=== PATIENT | female | born 1940 | race Caucasian/White ===

== ENCOUNTER → 2017-07-03 | Outpatient (CLI) | payer OTHER ==
[~2017-07-03] MED LIST: ALDACTONE25 MG PO; B-100 COMPLEX1 EAC1 PO; CENTRUM SILVER1 EAC4 PO; CO Q-10100 MG PO; ESTRADIOL 1 MG T1 M1 PO; FISH OIL 1,001000 M2 PO; LEXAPRO20 MG PO; LORTAB 7.5-3251 EACH PO; MAGOX 400400 MG PO; NAPROSYN500 MG PO; NEURONTIN600 MG PO; OSTEO BI-FLEX1 EAC1 PO; PRINIVIL20 MG PO; PROBIOTIC1 EAC1 PO; RETAINE HPMC 0.10 ML OP; SIMVASTATIN40 MG PO; TYLENOL325 MG PO; VITAMIN B-121000 MCG PO; VITAMIN D-32000 UNIT PO; VITAMINC500 PO; XARELTO10 MG PO
== END ==
LOC: MRI 06-25 09:01
DX: M41.86 Other forms of scoliosis, lumbar region (principal); M47.896 Other spondylosis, lumbar region

== ENCOUNTER 2018-01-08 05:24 | Inpatient (IN) | payer OTHER ==
[2018-01-02 10:59] LABS: HEMOGLOBIN 13.9 gm/dL (12.0-15.0); MCH 30.7 pg (26.0-34.0); MCHC 33.1 g/dL (28.0-37.0); MCV 92.8 fL (80.0-100.0); RBC 4.53 mil/uL (4.20-5.00); RDW 13.9 % (10.5-14.5); WBC 4.9 thou/uL (4.0-11.0)
[2018-01-02 11:00] LABS: URINE BILIRUBIN NEGATIVE (Negative); URINE BLOOD NEGATIVE (Negative); URINE CLARITY CLEAR; URINE COLOR YELLOW; URINE GLUCOSE-RANDOM* NEGATIVE (Negative); URINE KETONES NEGATIVE (Negative); URINE LEUKOCYTES-REFLEX NEGATIVE (Negative); URINE NITRITE-REFLEX NEGATIVE (Negative); URINE PROTEIN (DIPSTICK) NEGATIVE (Negative); URINE UROBILINOGEN 0.2 E.U./dl (0.2-1.0)
[2018-01-02 11:09] LABS: CALCIUM 9.1 mg/dL (8.5-10.1); CREATININE 0.7 mg/dL (0.6-1.0); POTASSIUM 4.6 mmol/L (3.5-5.1)
[2018-01-02 11:11] LABS: PROTIME 10.5 Seconds (9.3-11.4)
[~2018-01-08] VITALS: Ht 172.7 cm; Wt 77.1 kg
--- NOTE | ~2018-01-08 | O ---
[facility] [place] [address] OPERATIVE REPORT Name: LEROY YARBROUGH Room #: 408-P [facility] IN M.R.#: [id number] Admission: 01/08/18 Attend Phys: Kiel Ghosh MD Discharge: Date of : 40 Report #: [id number] THIS REPORT FOR: //name// CC: Kiel Lackey DATE OF SERVICE: 01/08/2018 PREOPERATIVE DIAGNOSES: Severe complex multilevel degenerative lumbar spondylosis with multilevel degenerative facet change and disk bulging causing multilevel spinal stenosis, also herniated lumbar disk, L4-L5, left. POSTOPERATIVE DIAGNOSES: Severe complex multilevel degenerative lumbar spondylosis with multilevel degenerative facet change and disk bulging causing multilevel spinal stenosis, also herniated lumbar disk, L4-L5, left. PROCEDURE: Multilevel decompressive laminectomy for spinal stenosis including L1, L2, L3, L4, and L5 levels and decompressive diskectomy, L4-L5, left. SURGEON: Kiel Ghosh MD INDICATIONS: This still active, fit and well-appearing 77-year-old female complains of severe progressive bilateral lower extremity numbness, pain and weakness. Symptoms are gradually more severe and are aggravated by activity. She now has difficulty with any prolonged standing or walking and also pain and numbness even at rest. Her clinical exam is consistent with some generalized lower extremity radiculopathy. Imaging studies of the lumbar spine reveal markedly severe degenerative change with significant disk space collapse and disk bulging at each level as well as rather marked facet hypertrophy at each level causing severe spinal stenosis extending throughout the lumbar spine. In addition, there is a moderately severe disk bulge at L4-L5 toward the left side, which further causes canal compromise and left nerve root impingement at that level. We discussed treatment options and attempted to avoid surgery if possible given her age; however, her symptoms are more severe and progressive and she simply unable to remain independent and functional given these problems. Given this, she and her family have elected to go ahead with a multilevel decompression for spinal stenosis at this time. DESCRIPTION OF PROCEDURE: The patient was taken to the operating room where she was placed under general anesthesia. Prophylactic intravenous antibiotics were administered. She was turned to the prone position. The lower back was meticulously prepped and draped. A longitudinal skin incision was made extending from L1 down to the sacrum. This was carried through subcutaneous tissues and fascia, retracting the paraspinal muscles out laterally both toward the right and the left. Adequate exposure was established. The laminectomy was started in the lower lumbar region. This was accomplished with moderate [facility] [address] [place] [address] OPERATIVE REPORT Name: LEROY YARBROUGH Room #: 408-P [facility] IN ..#: [id number] Admission: 01/08/18 Attend Phys: Kiel Ghosh MD Discharge: Date of : 40 Report #: [id number] difficulty due to the marked degenerative change, but also due to the fact that she has surprisingly hard bone, her family notes she has been noted to have rather hyperdense bone and was actually undergoing a previous general workup for possible pathologic condition while I do not think this is truly a pathologic process. She does have very hard bone, which made dissection and bony resection difficult and time consuming. Once the canal was entered, it was found to be very tight at multiple levels, which presented further difficulties as there was certainly risk for injury to the dura or nerve root with dissection. Carefully, the laminectomy was completed extending from about L5 level up to L1 level. C-arm was used to visualize the levels and I noted that I need to proceed slightly more proximally and more distally to complete the dissection. The lamina of L1 was resected and most of the lamina of L5 was resected at this point at both the upper and lower aspect of the dissection. The canal seemed to open up nicely without any further stenosis. This corresponded to the findings noted on preoperative MRI study. There was moderate facet hypertrophy at each level causing some lateral recess stenosis. This was improved with careful lateral dissection extending out along the medial border of the facet joint at each level and resecting as much hypertrophied ligamentum as possible to more fully decompress the canal. Once this had been completed, there seemed to be a very satisfactory decompression extending all the way from L1 down to the lower aspect of L5. This was confirmed with further C-arm views. At this point, the L4-L5 disk on the left was visualized. This disk was clearly prominent and bulging, but there was no extruded disk fragment, the disk space was entered and this was confirmed on C-arm, a moderate amount of loose degenerative disk debris was removed from within the disk space. This seemed to improve the disk bulging. There was also some disk fragments, which had extruded beneath the posterior longitudinal ligament along the posterior aspect of L5. Once these were removed, the canal seemed to be nicely decompressed, the nerve root seemed to be freed up and the neural foramina was opened. The other areas were once again inspected and no other areas of significant stenosis or impingement were identified. At this point, the entire wound was copiously irrigated. Satisfactory hemostasis was established with sponges, thrombin and gentle compression, the wound was thoroughly irrigated and dried. I felt there was still a bit of oozing from the multiple open bony surfaces and therefore felt a Hemovac drain was probably most appropriate. One drain was left deep in the wound beneath the fascia and then the fascia was closed with multiple #1 Vicryl sutures and also 0 Monocryl. A second drain was left above the fascia exiting through a separate stab incision. The more superficial subcutaneous tissues were closed with 0 Monocryl. The skin was closed with skin michelle. Total blood loss during the [facility] [address] [place] [address] OPERATIVE REPORT Name: LEROY YARBROUGH [place] Room #: 408-P [facility] IN .R.#: [id number] Admission: 01/08/18 Attend Phys: Kiel Ghosh MD Discharge: Date of : 40 Report #: [id number] procedure was about 325 mL. She seemed to be stable throughout the procedure. She was awakened and returned to recovery room in good condition. <ELECTRONICALLY SIGNED> By: Kiel Ghosh MD 01/08/18 1830 1221 1322 Kiel Ghosh MD /nt
--- NOTE | ~2018-01-08 | S ---
[facility] [place] [address] SURGICAL PATH RPT PROCEDURE Name: MARY GALAVIZ Room #: 408-P ADM IN M.R.#: [id number] Admission: 01/08/18 Date of : 40 Discharge: Report #: [id number] Path Case #: [id number] PATHOLOGY REPORT COLLECTION DATE: 01/08/2018 RECEIVED DATE: 01/08/2018 SUBMITTING PHYS: Dr. Kiel Ghosh OTHER PHYS: Dr. Aye Lackey SPECIMEN(S) RECEIVED: A.L4-L5 disc * * * * * * * * * * * * FINAL DIAGNOSIS: "L4-L5 disc," discectomy: - Intervertebral disc material with reactive and degenerative changes. (CLW:mgr; 01/09/2018) PATHOLOGIST: Zeinab Umanzor M.D. REPORT ELECTRONICALLY SIGNED BY: Zeinab Umanzor M.D. DATE/TIME: 01/09/2018 17:26 * * * * * * * * * * * * GROSS PATHOLOGY: Received in formalin labeled "Mary Galaviz, L4-L5 disc," are several pieces of glistening, fibrous tissue measuring 2.7 x 2.2 x 0.3 cm in aggregate dimensions, containing small fragments of possible bone. The tissue is filtered and submitted entirely in cassette A1. (TSD; 01/08/2018) CLINICAL HISTORY: Lumbar multilevel spinal stenosis INITIAL CPT CODE(S): A; 50804 Professional services performed by [facility] at [facility] [place] [address] Technical services performed by [facility] at [address] [place] [address], [address], [place] [address]. [facility] [address] [address] SURGICAL PATH RPT PROCEDURE Name: ZENONMARY Room #: 408-P ADM IN M.R.#: [id number] Admission: 01/08/18 Date of : 40 Discharge: Report #: [id number] Path Case #: [id number] [address] PHONE: [phone] DIRECTOR: Hugo Mckeon M.D. * * * END OF REPORT * * *
--- NOTE | ~2018-01-08 | D ---
[facility] [place] [address] DISCHARGE SUMMARY Name: LEROY YARBROUGH Room #: 220-P [facility] IN ..#: [id number] Admission: 01/08/18 Attend Phys: Kiel Ghosh MD Discharge: Date of : 40 Report #: [id number] THIS REPORT FOR: //name// CC: Kiel Lackey PLANNED DATE OF DISCHARGE: 01/11/2018 FINAL DIAGNOSES: Severe multilevel degenerative lumbar spondylosis with spinal stenosis and multilevel decompression. HISTORY: This 77-year-old female has a history of progressive degenerative arthritis in multiple areas and underwent previous total joint arthroplasty. She also has a long history of severe and progressive degenerative arthritis in the low back. This has advanced dramatically with marked spinal stenosis at multiple levels as well as a lumbar disk herniation at L4-L5 toward the left side. She has had recently problems with poor sensation and strength in both lower extremities and difficulty with gait and balance. She seems to be a progressive fall risk and her lower extremity radiculopathy is becoming more severe limiting her ability to remain active and independent. Given this, we have elected to go ahead with a multilevel surgical decompression. HOSPITAL COURSE: The patient was admitted and taken to the operating room on 01/08/2018. She underwent a multilevel lumbar decompression extending from L1 through L5 levels as well as a lumbar disk decompression at L4-L5 toward the left side. She tolerated this reasonably well, but postoperatively did have quite a bit of discomfort as well as some weakness. There was mild ongoing oozing and Hemovac drains were left in place for 48 hours. This gradually diminished. She was maintained on IV antibiotics during this timeframe. She was started on IV analgesics and then gradually advanced back to oral analgesics and her other regular medication. She was able to resume a regular diet. She was started with physical therapy and was able to make some slow progress with transfers and some ambulation using a walker; however, she is still rather weak and has poor balance and requires significant assistance for safety. She is clearly an ongoing fall risk. We discussed this issue noting she does not have around the clock help at home where she lives independently. Consequently, I do not think she is ready to resume that level of independence and I feel a period of assistance in an acute rehab facility is more appropriate. She has had previous experience with [facility] and wants to go back to that facility for 3-7 days until she can demonstrate satisfactory safety to return to her own home. Pending bed availability, she may be ready for discharge and transfer to that facility on either 01/11/2018 or 01/12/2018. DISCHARGE MEDICATIONS: Include gabapentin 600 mg b.i.d., lisinopril 20 mg 2 tablets at bedtime, Lexapro 40 mg at bedtime, Tylenol 325 mg q.4h. p.r.n. for mild pain, tramadol 50 mg q.4h. for moderate pain hydrocodone 5 mg q.4h. for more severe pain, simvastatin 40 mg daily, CoQ10, multivitamin 100 mg daily, [address] [address] DISCHARGE SUMMARY Name: LEROY YARBROUGH Room #: 220-P [facility] IN ..#: [id number] Admission: 01/08/18 Attend Phys: Kiel Ghosh MD Discharge: Date of : 40 Report #: [id number] ascorbic acid 1000 mg daily, Centrum multivitamin once daily, vitamin B12 1000 mcg daily, estradiol 1 mg daily, methocarbamol 500 mg p.r.n. muscle spasm, Celebrex 200 mg daily. She will continue a regular diet. I have asked that nursing care at the facility continue with daily wound care to inspect the back incision and change dressing as needed. She can get the area wet with a gentle bathing and a shower, but I would avoid soaking in a tub or whirlpool. She will need assistance for both Physical Therapy and Occupational Therapy for activities of daily living and transfers and ambulation using a walker for balance and weightbearing as tolerated. I have asked the facility and the patient's family to call me should there be any problems or questions. I would anticipate 3-5 days and then possibly home with family assistance and some visiting nursing or visiting therapy if necessary at that point. <ELECTRONICALLY SIGNED> By: Kiel Ghosh MD 01/11/18 0944 1022 1056 Kiel Ghosh MD /nt
--- NOTE | ~2018-01-08 | EKG ---
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
[~2018-01-08 05:24] MED LIST changes: +CELEBREX 200 M200 M1 PO; +LISINOPRIL40 MG PO; +METHOCARBAMOL500 M2 PO; -RETAINE HPMC 0.10 ML OP; +RETAINE HPMC 0.10 ML OPHTHALMIC; +TRAMADOL 50 MG50 MG PO; +VITAMIN E400 UNIT PO
[2018-01-08 07:00] VITALS: BP 166/87
[2018-01-08 15:23] VITALS: BP 141/74
[2018-01-08 16:00] VITALS: BP 148/104
[2018-01-08 16:30] VITALS: BP 131/73
[2018-01-08 19:52] VITALS: BP 146/76
[2018-01-09 00:05] VITALS: BP 154/80
[2018-01-09 04:07] VITALS: BP 157/87
[2018-01-09 07:00] VITALS: BP 128/62
[2018-01-09 15:15] VITALS: BP 152/88
[2018-01-09 17:59] VITALS: BP 128/62
[2018-01-09 19:33] VITALS: BP 146/73
[2018-01-10 03:35] VITALS: BP 126/69
[2018-01-10 08:02] VITALS: BP 124/65
[2018-01-10 16:09] VITALS: BP 128/61
[2018-01-10 20:37] VITALS: BP 143/73
[2018-01-11 08:52] VITALS: BP 135/69
[2018-01-11 20:00] VITALS: BP 117/60
[2018-01-12 08:10] VITALS: BP 162/82
== END 2018-01-12 13:37 | DRG 520 ==
LOC: 4N 05:24 → TBA 05:24 → PRE 05:32 → 4N 14:10 → PRE 14:17 → SICU 01-10 20:29
PROVIDERS: Orthopaedic Surgery
PROC: 01NB0ZZ Release Lumbar Nerve, Open Approach (ICD-10-PCS; principal; 2018-01-08)
PROC: 0SB20ZZ Excision of Lumbar Vertebral Disc, Open Approach (ICD-10-PCS; principal; 2018-01-08)
DX: M51.16 Intervertebral disc disorders with radiculopathy, lumbar region (principal); M47.26 Other spondylosis with radiculopathy, lumbar region; M48.061 Spinal stenosis, lumbar region without neurogenic claudication; I10 Essential (primary) hypertension; E78.5 Hyperlipidemia, unspecified; Z96.642 Presence of left artificial hip joint; G47.30 Sleep apnea, unspecified; Z96.652 Presence of left artificial knee joint; F32.9 Major depressive disorder, single episode, unspecified; Z90.710 Acquired absence of both cervix and uterus; Z98.42 Cataract extraction status, left eye; Z98.41 Cataract extraction status, right eye; Z79.899 Other long term (current) drug therapy
CPT/HCPCS: 10790; 15000; 50010; 50101; 50704; 50850; 51412; 56525; 62110; 62900; 70005

== ENCOUNTER 2020-05-27 13:46 | Inpatient (IN) | payer OTHER ==
[~2020-05-27] VITALS: Ht 170.2 cm; Wt 86.2 kg
[2020-05-27 13:50] VITALS: BP 163/68
[2020-05-27 14:08] LABS: HEMATOCRIT 43.2 % (37.0-47.0); HEMOGLOBIN 14.6 gm/dL (12.0-15.0); MCH 31.7 pg (26.0-34.0); MCHC 33.9 g/dL (28.0-37.0); MCV 93.6 fL (80.0-100.0); PLATELET COUNT 228 thou/uL (150-400); RBC 4.61 mil/uL (4.20-5.00); RDW 15.1 % (10.5-14.5); WBC 4.4 thou/uL (4.0-11.0)
[2020-05-27 14:15] LABS: ANION GAP 8 mmol/L (7-16); BUN 18 mg/dL (7-18); CALCIUM 8.9 mg/dL (8.5-10.1); CHLORIDE 106 mmol/L (98-107); CO2 27 mmol/L (21-32); CREATININE 0.9 mg/dL (0.6-1.0); GLUCOSE 80 mg/dL (74-106); POTASSIUM 4.5 mmol/L (3.5-5.1); SODIUM 141 mmol/L (136-145)
[2020-05-27 14:24] LABS: MAGNESIUM 1.9 mg/dL (1.8-2.4); TROPONIN-I <0.06 ng/mL (<0.06)
[2020-05-27 14:42] LABS: URINE BILIRUBIN NEGATIVE (Negative); URINE BLOOD NEGATIVE (Negative); URINE CLARITY CLEAR; URINE COLOR YELLOW; URINE GLUCOSE-RANDOM* NEGATIVE (Negative); URINE KETONES NEGATIVE (Negative); URINE LEUKOCYTES-REFLEX NEGATIVE (Negative); URINE NITRITE-REFLEX NEGATIVE (Negative); URINE PROTEIN (DIPSTICK) NEGATIVE (Negative); URINE UROBILINOGEN 0.2 E.U./dl (0.2-1.0)
[2020-05-27 15:08] LABS: ABSOLUTE NEUTROPHILS 1.9 thou/uL (1.4-8.2)
[2020-05-27 15:09] LABS: ANISOCYTOSIS 1+
[2020-05-27 15:39] LABS: APTT 22.8 Seconds (24.5-32.8); PROTIME 10.4 Seconds (9.3-11.4)
[2020-05-27 17:29] VITALS: BP 162/76
[2020-05-27 18:25] VITALS: BP 161/76
[2020-05-27 19:00] VITALS: BP 130/54
--- NOTE | 2020-05-27 19:17 | NUR ---
PT ADMITED FROM ER. ADMISSION HX AND ASSESSMENT COMPLETED. VSS. DENIED HAVING PAIN OR DISCOMFORT. SR ON TELE. PT ORIENTED TO THE ROOM AND THE SURROUNDINGS. SON UPDATED ON PT'S PLAN OF CARE. NEW ORDERS NOTED. WILL CONTINUE TO MONITOR.
--- NOTE | 2020-05-27 23:49 | NUR ---
ASSESSMENTS CHARTED. MEDS CHARTED GIVEN. PATIENT RESTING IN BED AT START OF SHIFT. ALERT AND ORIENTED. CLEAR ON ROOM AIR, PATIENT HAD NO PROBLEM EATING AND DRINKING. UP WITH STANDBY ASSIST AND WALKER TO REST ROOM. DENIED PAIN. FALL PRECAUTIONS IN PLACE DURING SHIFT.
[2020-05-28] VITALS: BP 124/91
[2020-05-28 04:00] VITALS: BP 151/71
[2020-05-28 06:15] LABS: ALBUMIN 3.5 g/dL (3.4-5.0); ANION GAP 11 mmol/L (7-16); BUN 21 mg/dL (7-18); CALCIUM 8.8 mg/dL (8.5-10.1); CHLORIDE 103 mmol/L (98-107); CHOLESTEROL 237 mg/dL (<200); CO2 26 mmol/L (21-32); GLUCOSE 89 mg/dL (74-106); HDL CHOLESTEROL 63 mg/dL (>40); LDL CHOLESTEROL 152 mg/dL (<100); POTASSIUM 4.3 mmol/L (3.5-5.1); SGOT 31 U/L (15-37); SGPT 41 U/L (30-65); SODIUM 140 mmol/L (136-145); TC:HDL 3.8 Ratio (Not establshd); TOTAL BILIRUBIN 0.4 mg/dL (0.2-1.0); TRIGLYCERIDE 113 mg/dL (<150); VLDL 23 mg/dL (<40)
[2020-05-28 06:38] LABS: SERUM ASSESSMENT Clear
[2020-05-28 09:33] VITALS: BP 126/66
[2020-05-28 12:32] VITALS: BP 147/73
[2020-05-28 15:09] VITALS: BP 133/69
--- NOTE | 2020-05-28 17:18 | NUR ---
ASSESSMENT CHARTED. PT ALERT AND ORIENTED. VSS. DENIED HAVING PAIN OR DISCOMFORT. SEEN BY NEUROLOGIST. NEW ORDERS NOTED. FALL PRECAUTION ENFORCED. WILL CONTINUE TO MONITOR.
[2020-05-28 19:32] VITALS: BP 148/83
[2020-05-29] VITALS (7 sets, daily range): BP systolic 129–150; BP diastolic 57–81
--- NOTE | 2020-05-29 08:40 | EKG ---
[facility] [place] [address] ELECTROCARDIOGRAM REPORT Name: LEROY YARBROUGH Room #: 202- ADM IN M.R.#: [id number] Admission: 05/27/20 Attend Phys: Alberot Olmos MD Discharge: Date of : 40 Report #: [id number] THIS REPORT FOR: cc: Aye Lackey MD, Kelly M. MD Lundgren, Craig H. 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 : 1940 Requested By: George Zapata Order Number: [id number] MD: Raghav Spence Measurements Intervals [place] Rate: 73 P: 266 DE: 154 QRS: -29 QRSD: 100 T: 63 QT: 412 QTc: 454 Interpretive Statements Sinus rhythm Borderline left axis deviation Poor R wave progression Compared to ECG 01/02/2018 10:54:46 No significant change was found Electronically Signed On 05-29-2020 8:39:48 CDT by Raghav Spence [email or web address] <ELECTRONICALLY SIGNED> By: Raghav Spence MD, [facility] 05/29/20 0839 1359 1359 Raghav Spence MD, [facility] /EPI
--- NOTE | 2020-05-29 09:30 | 2DMMODE ---
[facility] [place] [address] 2 D/M-MODE ECHOCARDIOGRAM Name: LEROY YARBROUGH Room #: 202-P ADM IN M.R.#: [id number] Admission: 05/27/20 Attend Phys: Alberto Olmos MD Discharge: Date of : 40 Report #: [id number] THIS REPORT FOR: cc: Aye Lackey MD, Kelly M. MD Lammoglia, Francisco J. MD ~ APPROVED REPORT Study performed: 05/29/2020 08:45:18 EXAM: Comprehensive 2D, Doppler, and color-flow Echocardiogram Patient Location: Bedside Room #: 202 Status: routine BSA: 1.98 HR: 65 bpm BP: 150/63 mmHg Rhythm: NSR/PCVs Indications CVA Hx: HTN, HLD 2D Dimensions RVDd: 38.94 mm IVSd: 10.51 (7-11mm) LVOT Diam: 20.91 (18-24mm) LVDd: 45.16 mm PWd: 10.13 (7-11mm) LVDs: 27.78 (25-40mm) Aortic Root: 35.56 mm Volumes Left Atrial Volume (Systole) Single Plane 4CH: 39.34 mL Single Plane 2CH: 59.13 mL LA ESV Index: 26.00 mL/m2 Aortic Valve AoV Peak Esvin.: 1.33 m/s AO Peak Gr.: 7.08 mmHg LVOT Max P.40 mmHg LVOT Max V: 1.26 m/s ABHINAV Vmax: 3.26 cm2 Mitral Valve E/A Ratio: 0.5 [facility] [address] [place] [address] 2 D/M-MODE ECHOCARDIOGRAM Name: LEROY YARBROUGH [place] Room #: 202-P [facility] IN Sera.#: [id number] Admission: 05/27/20 Attend Phys: Alberto Olmos MD Discharge: Date of : 40 Report #: [id number] MV Decel. Time: 250.35 ms MV E Max Esvin.: 0.75 m/s MV A Esvin.: 1.57 m/s MV PHT: 72.60 ms IVRT: 58.82 ms Pulmonary Valve PV Peak Esvin.: 0.82 m/s PV Peak Gr.: 2.68 mmHg Pulmonary Vein P Vein S: 0.54 m/s P Vein A: 0.35 m/s P Vein D: 0.28 m/s P Vein A Dur.: 143.0 msec P Vein S/D Ratio: 1.93 Tricuspid Valve RAP Estimate: 5.00 mmHg Left Ventricle The left ventricle is normal size. There is normal LV segmental wall motion. Mild basal septal hypertrophy is present. Left ventricular systolic function is normal. LVEF is 60-65%. Mild diastolic dysfunction is present (impaired relaxation pattern). Right Ventricle The right ventricle is normal size. The right ventricular systolic function is normal. Atria The left atrium size is normal. The right atrium size is normal. Aortic Valve The aortic valve is normal in structure. Mild aortic regurgitation. There is no aortic valvular stenosis. Mitral Valve The mitral valve is normal in structure. Mild mitral annular calcification. Trace mitral regurgitation. No evidence of mitral valve stenosis. Tricuspid Valve The tricuspid valve is normal in structure. There is no tricuspid valve regurgitation noted. Unable to assess PA pressure. Pulmonic Valve Pulmonic valve is not well visualized. Trace pulmonic [facility] [address] [place] [address] 2 D/M-MODE ECHOCARDIOGRAM Name: LEROY YARBROUGH Room #: 202-P ADM IN M.R.#: [id number] Admission: 05/27/20 Attend Phys: Alberto Olmos MD Discharge: Date of : 40 Report #: [id number] regurgitation. Great Vessels The aortic root is normal in size. Ascending aorta is not well visualized. IVC is normal in size and collapses >50% with inspiration. Pericardium There is no pericardial effusion. <Conclusion> The left ventricle is normal size. LVEF is 60-65%. The aortic valve is normal in structure. Mild aortic regurgitation. The mitral valve is normal in structure. Mild mitral annular calcification. Trace mitral regurgitation. The tricuspid valve is normal in structure. Pulmonic valve is not well visualized. Trace pulmonic regurgitation. There is no pericardial effusion. <ELECTRONICALLY SIGNED> By: Jace Gates MD 05/29/20929 9 9 Jace Gates MD /INF
--- NOTE | 2020-05-29 12:11 | NUR ---
Met with patient who reports she resides at home in independent home. All needs on one level. patient has a cane/walker and uses if needed. She has family nearby. Cont to drive. PCP Dr Aye Lackey out of [facility]. Possible dc today. Patient open to HH, no preference of HH agency. Referral to [facility].
[2020-05-29] MEDS ORDERED: ASPIRIN EC81 M1 PO (16:03)
[2020-05-29] MEDS ORDERED: PLAVIX 75 MG TA75 MG PO (16:03)
--- NOTE | 2020-05-29 17:21 | NUR ---
PT CARE ASSUMED APPROX 0700. ASSESSMENTS CHARTED. PT DENIES PAIN AND SOA. VSS. UP WITH SBA AND USE OF WALKER. MAY POSSIBLY DISCHARGE THIS EVENING. WILL F/U WITH DR OLVERA WHEN HE ROUNDS. PT AWARE AND AGREEABLE. NO DISTRESS NOTED.
--- NOTE | 2020-05-29 20:33 | NUR ---
rounded with patient,Discharge orders discussed with the patient.Med s given as per instruction.Pt given the discharge instructions,voiced understanding.Pt transported via private car by the son.
--- NOTE | 2020-05-30 16:46 | NUR ---
PT DISCHARGING TODAY TO HOME WITH [facility] FAXED DC ORDERS/SUMMARY SPOKE WITH TALHA IN INTAKE SHE RECEIVED ORDERS AND WILL NOTIFY PT TIME OF VISITS.
== END 2020-05-29 20:30 | disposition home health service (06) | DRG 68 ==
LOC: ER 13:46 → EROBS 15:28 → 2N 15:28
PROVIDERS: Emergency Medicine; ADMIT Internal Medicine; ATTEND Internal Medicine
DX: I65.21 Occlusion and stenosis of right carotid artery (principal); R47.01 Aphasia; R41.82 Altered mental status, unspecified; I10 Essential (primary) hypertension; E78.5 Hyperlipidemia, unspecified; Z96.642 Presence of left artificial hip joint; Z96.652 Presence of left artificial knee joint; F32.9 Major depressive disorder, single episode, unspecified; G47.33 Obstructive sleep apnea (adult) (pediatric); G62.9 Polyneuropathy, unspecified; E66.01 Morbid (severe) obesity due to excess calories; R53.81 Other malaise; R19.7 Diarrhea, unspecified; E55.9 Vitamin D deficiency, unspecified; E53.8 Deficiency of other specified B group vitamins; I67.9 Cerebrovascular disease, unspecified; M19.90 Unspecified osteoarthritis, unspecified site; Z79.899 Other long term (current) drug therapy; Z90.710 Acquired absence of both cervix and uterus; Z91.048 Other nonmedicinal substance allergy status; Z68.29 Body mass index [BMI] 29.0-29.9, adult
CPT/HCPCS: 10081

== ENCOUNTER 2020-06-30 06:10 | Inpatient (IN) | payer OTHER ==
[~2020-06-30] VITALS: Ht 170.2 cm; Wt 88.9 kg
[2020-06-30] VITALS (12 sets, daily range): BP systolic 115–129; BP diastolic 44–58
[~2020-06-30 06:10] MED LIST changes: +ASPIRIN EC81 M1 PO; -B-100 COMPLEX1 EAC1 PO; +B-100 COMPLEX100 MG PO; +CARVEDILOL3.125 MG PO; +CHILDREN'S ASPI81 M1 PO; +CLIMARA1 EAC3 TRANSDERM; +FISH OIL 1,2001 EAC3 PO; +NIACIN1000 MG PO; +PLAVIX 75 MG TA75 MG PO; +PROTONIX40 M2 PO; -VITAMIN D-32000 UNIT PO; +VITAMIN D350 MCG PO; +XIIDRA1 EACH OPHTHALMIC; +ZESTRIL40 MG PO
[2020-07-01] VITALS (16 sets, daily range): BP systolic 104–135; BP diastolic 40–71
--- NOTE | 2020-07-01 04:33 | NUR ---
REPORT RECEIVED. PATIENT A/O X4. DENIES ANY SOA, PAIN, N/V. AFEBRILE. VSS. CARDENE GTT TITRATED OFF AT MIDGHT. TOLERATING WELL. EDGAR IN PLACE WITH GOOD U/O. DENIES NEEDS. WILL KEEP MONITORING.
[2020-07-01 04:38] LABS: HEMATOCRIT 34.1 % (37.0-47.0); HEMOGLOBIN 11.1 gm/dL (12.0-15.0); MCH 30.7 pg (26.0-34.0); MCHC 32.6 g/dL (28.0-37.0); MCV 94.4 fL (80.0-100.0); RBC 3.61 mil/uL (4.20-5.00); RDW 14.5 % (10.5-14.5); WBC 11.6 thou/uL (4.0-11.0)
[2020-07-01 04:43] LABS: CALCIUM 7.9 mg/dL (8.5-10.1); CREATININE 0.8 mg/dL (0.6-1.0); POTASSIUM 4.2 mmol/L (3.5-5.1)
--- NOTE | 2020-07-01 06:11 | NUR ---
ARTLINE AND TALA D/C'D. ART-LINE SITE CLEAN DRY AND INTACT. WILL KEEP MONITORING
--- NOTE | 2020-07-01 11:01 | NUR ---
ASSUMED CARE @ 0700 07/01/20, PT ASSESSMENTS AND VSS PER ICU PRT. DR TEAGUE @ BEDSIDE @ 1100 ASSESSING PT AND CHANGING DARIUS DRESSING. DISCHARGE ORDERS TO FOLLOW. SON AT BEDSIDE THIS AM FROM [phone]
--- NOTE | 2020-07-01 11:21 | O ---
[facility] [place] [address] OPERATIVE REPORT Name: LEROY YARBROUGH Room #: 249-P ADM IN M.R.#: [id number] Admission: 06/30/20 Attend Phys: Georgi Xavier MD Discharge: Date of : 40 Report #: [id number] THIS REPORT FOR: cc: Aye Lackey MD, Kelly M. MD Forman, John M. MD ~ CC: Georgi Lackey DATE OF SERVICE: 06/30/2020 PREOPERATIVE DIAGNOSIS: Right carotid artery stenosis. POSTOPERATIVE DIAGNOSIS: Right carotid artery stenosis. OPERATION: Right carotid endarterectomy with patch closure. SURGEON: Georgi Xavier MD FURNITURE CRATER: VISHNU Cee. ANESTHESIA: General. INDICATIONS: The patient is a 79-year-old with history of transient ischemic attack. Carotid arteriography demonstrated a greater than 70% right internal carotid stenosis. The left carotid had more trivial disease. FINDINGS AND TECHNIQUE: After general anesthesia was established, an oblique incision was made in the right neck. Common facial vein was divided. Common internal and external carotid arteries were identified and controlled, 10,000 units of heparin were given. Continuous electroencephalographic monitoring was performed during the operation. When the carotid vessels were occluded, no EEG changes were noted. The carotid arteriotomy was made. The endarterectomy was performed without creating a distal flap. Neointima was inspected and all loose debris was removed. Tacking sutures were placed at the transition zone. When the endarterectomy was deemed to be satisfactory, the arteriotomy was closed with thin walled pericardial patch and running Prolene. Prior to finishing the closure, the carotid vessels were backbled and the artery was irrigated with heparinized saline. Flow was established first through the external, then the internal carotid artery. Protamine was given to reverse the heparin. Hemostasis was satisfactory. [facility] [address] [place] [address] OPERATIVE REPORT Name: LEROY YARBROUGH [place] Room #: 249-P [facility] IN .Misael.#: [id number] Admission: 06/30/20 Attend Phys: Georgi Xavier MD Discharge: Date of : 40 Report #: [id number] The wound was irrigated with antibiotic solution. Callum drain was brought out through the bottom pole of the incision. The wound was closed in layers in the usual fashion. The patient was taken to the recovery area where her neurologic progress was monitored. All counts reported as correct. <ELECTRONICALLY SIGNED> By: Georgi Xavier MD 07/01/20 1121 1101 1134 Georgi Xavier MD /nt
--- NOTE | 2020-07-03 17:06 | PATH ---
[facility] [address] [place] [address] PATHOLOGY RPT PROCEDURE Name: MARY GALAVIZ Room #: 249-P DIS IN M.R.#: [id number] Admission: 06/30/20 Date of : 40 Discharge: 07/01/20 Report #: [id number] Path Case #: [id number] [facility] Accession Number: [id number] . 01 Material submitted: . artery - RIGHT CAROTID ARTERY PLAQUE. Modifiers: carotid, right . 01 Clinical history: . CAROTID STENOSIS . 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 (IUV:briseyda; 07/03/2020) QMS 07/03/2020 1433 Local . 02 Electronically signed: . Stephania Mckay MD, Pathologist NPI- [id number] . 01 Gross description: . The specimen is received in formalin, labeled "Mary Galaviz, right carotid artery plaque" and consists of 3 rubbery to calcified segments of tissue measuring between 1.2 x 0.7 x 0.2 cm and 2.1 x 1.0 x 0.6 cm. One segment displays a stenotic lumen. [employer] sections are submitted in A1 following decalcification. (SDY; 06/30/2020) SYU/SYU 06/30/2020 1637 Local . 02 Pathologist provided ICD-10: I77.1 . 02 CPT . 791259, [id number] Specimen Comment: A courtesy copy of this report has been sent to [phone], [phone] Specimen Comment: [id number] Specimen Comment: Report sent to / DR AVALOS Performed at: [address], [place] [id number] MD Jonnathan Hinojosa MD Phone: [phone] Performed at: [address] [id number] MD Stephania Mckay MD Phone: [phone]
== END 2020-07-01 12:15 | disposition home or self-care (01) | DRG 39 ==
LOC: TBA 06:10 → PRE 12:24 → ICU 12:47 → PRE 12:47 → ICU 12:47 → PRE 13:30 → ICU 07-01 12:15
PROVIDERS: Physician Assistant; ADMIT Surgery Vascular Surgery; ATTEND Surgery Vascular Surgery
PROC: 03CK0ZZ Extirpation of Matter from Right Internal Carotid Artery, Open Approach (ICD-10-PCS; principal; 2020-06-30)
PROC: 03UK0KZ Supplement Right Internal Carotid Artery with Nonautologous Tissue Substitute, Open Approach (ICD-10-PCS; principal; 2020-06-30)
DX: I65.21 Occlusion and stenosis of right carotid artery (principal); Z96.649 Presence of unspecified artificial hip joint; Z20.828 Contact with and (suspected) exposure to other viral communicable diseases; Z79.82 Long term (current) use of aspirin; Z79.899 Other long term (current) drug therapy; Z88.7 Allergy status to serum and vaccine; Z88.8 Allergy status to other drugs, medicaments and biological substances
CPT/HCPCS: 10078; 50010; 50101; 50386; 50417; 51301; 52279; 52287; 54118; 56524; 56526; 56528; 56531; 56534; 57254; 62110; 62900; 65020; 65040; 70005